=== PATIENT | male | born 1965 | race Caucasian/White ===

== ENCOUNTER → 2018-10-03 | Outpatient (REF) ==
--- NOTE | 2018-10-03 10:15 | REP ---
Clinical: Pain and disability. Technique: Internal rotation, external rotation, and Y view of the right shoulder. Findings: Evidence for old healed mid clavicular shaft fracture. The acromioclavicular joint appears relatively normal. There is inferior sloping and subtle cortical irregularity involving the acromion process. The subacromial space is maintained. No periarticular calcifications are identified. The glenoid rim and humeral head appear relatively normal. Impression: Old healed mid clavicular shaft fracture. Mild degenerative changes involving the acromion. Electronically Signed by Oumar Mcarthur MD 10/03/2018 10:06 A
--- NOTE | 2018-10-03 10:25 | REP ---
Clinical: Pain and disability. Technique: AP view of the pelvis with neutral and frog lateral views of the right and left hip. Findings: No acute fracture or dislocation. Mild/early moderate arthritic changes to the bilateral hips noted. Findings include increased sclerosis to the acetabular roof with marginal spurring and joint space narrowing (right greater than left). No periarticular calcifications or loose bodies. Impression: Mild/early moderate arthritic changes (right greater than left). Electronically Signed by Oumar Mcarthur MD 10/03/2018 10:15 A
== END ==
LOC: M SMT 09:49
PROVIDERS: ATTEND Internal Medicine
DX: Z02.71 Encounter for disability determination (principal)